=== PATIENT | male | born 1960 | race Hispanic/Latino ===

== ENCOUNTER 2020-03-23 16:36 | Inpatient (IN) | payer MEDICARE ==
[~2020-03-23] VITALS: Ht 167.6 cm; Wt 78.5 kg
[2020-03-23] MEDS: PIPER-TAZ 3.375 GM 50 ML IV SCH (12:00)
[2020-03-23] MEDS ORDERED: ONDANSETRON HCL INJ 2MG/ML 2ML 2 MG/ML VIAL IV STA (17:01)
[2020-03-23] MEDS ORDERED: SODIUM CHLORIDE 0.9% 1000ML 1,000 ML IV STA ×3 (17:01→20:22)
[2020-03-23] MEDS ORDERED: PIPER-TAZ 3.375 GM 50 ML IV STA (17:01)
[2020-03-23] MEDS ORDERED: MORPHINE SULFATE INJ 4 MG/ML INJ 1ML IV STA (17:01)
[2020-03-23] MEDS ORDERED: SODIUM CHLORIDE FLUSH 10 ML SYR INJ PRN (17:15)
[2020-03-23 17:31] LABS: BASOPHILS # (AUTO) 0.1 (0.0-0.1); BASOPHILS % 0.4 % (0.0-1.0); EOSINOPHILS % 0.2 % (0.0-6.0); HEMATOCRIT 46.1 % (38.2-49.6); HEMOGLOBIN 15.4 g/dL (14.0-18.0); LYMPHOCYTES # (AUTO) 2.2 (1.0-3.2); LYMPHOCYTES % 12.1 % (18.0-39.1); MEAN CORPUSCULAR HEMOGLOBIN 29.4 pg (28-32); MEAN CORPUSCULAR HGB CONC 33.4 g/dL (31-35); MONOCYTES % 10.5 % (4.4-11.3); NEUTROPHILS # (AUTO) 14.1 (2.1-6.9); NEUTROPHILS % 76.2 % (38.7-80.0); PLATELET COUNT 195 x10e3/uL (140-360); RED BLOOD COUNT 5.24 x10e6/uL (4.3-5.7); RED CELL DISTRIBUTION WIDTH 13.8 % (11.7-14.4)
[2020-03-23 17:35] LABS: BILIRUBIN,URINE NEGATIVE (NEGATIVE); CLARITY,URINE SL CLOUDY (CLEAR); COLOR,URINE YELLOW (YELLOW); KETONES,URINE NEGATIVE (NEGATIVE); LEUKOCYTE ESTERASE ,URINE NEGATIVE (NEGATIVE); NITRITE,URINE NEGATIVE (NEGATIVE); PROTEIN,URINE DIPSTICK 2+ (NEGATIVE); URINE UROBILINOGEN 0.2 mg/dL (0.2 - 1)
[2020-03-23 17:46] LABS: BACTERIA,URINE MODERATE /HPF; RBC,URINE 0-5 /HPF (0-5)
[2020-03-23 17:47] LABS: EPITHELIAL CELLS,URINE RARE /LPF
[2020-03-23 17:52] LABS: ALANINE AMINOTRANSFERASE 22 IU/L (0-55); ALBUMIN 4.5 g/dL (3.5-5.0); ALBUMIN/GLOBULIN RATIO 1.5 (0.8-2.0); ALKALINE PHOSPHATASE 70 IU/L (40-150); ANION GAP 16.7 mmol/L (8-16); BLOOD UREA NITROGEN 11 mg/dL (7-26); BUN/CREATININE RATIO 11 (6-25); CALCIUM 9.6 mg/dL (8.4-10.2); CARBON DIOXIDE 24 mmol/L (22-29); CHLORIDE 98 mmol/L (98-107); CREATINE KINASE 33 IU/L (30-200); CREATININE, SERUM 0.97 mg/dL (0.72-1.25); EST GLOMERULAR FILTRATION RATE > 60 ML/MIN (60-); GLUCOSE 95 mg/dL (74-118); LIPASE 57 U/L (8-78); POTASSIUM 3.7 mmol/L (3.5-5.1); SODIUM 135 mmol/L (136-145)
[2020-03-23] MEDS ORDERED: SODIUM CHLORIDE 0.9% 50ML 50 ML ONE (18:15)
[2020-03-23] MEDS ORDERED: IOPAMIDOL 370 MG/ML 200 ML INFUS..BTL INJ ONE (18:15)
--- NOTE | 2020-03-23 18:35 | Diagnostic Imaging Report ---
EXAMINATION: CHEST SINGLE (PORTABLE) INDICATION: Abdominal pain concerning for pneumoperitoneum. COMPARISON: None FINDINGS: TUBES and LINES: None. LUNGS: Normal lung volumes. Lungs are clear. No consolidations. PLEURA: No pleural effusion or pneumothorax. HEART AND MEDIASTINUM: The cardiomediastinal silhouette is unremarkable. BONES AND SOFT TISSUES: No acute osseous lesion. Soft tissues are unremarkable. UPPER ABDOMEN: No free air under the diaphragm. IMPRESSION: 1. No evidence of pneumoperitoneum. 2. No acute thoracic radiographic abnormality. Signed by: Carly Hale MD on 03/23/2020 6:32 PM
--- NOTE | 2020-03-23 19:41 | Diagnostic Imaging Report ---
EXAM: CT Abdomen and Pelvis WITH contrast INDICATION: Generalized abdominal pain. COMPARISON: None. TECHNIQUE: Abdomen and pelvis were scanned utilizing a multidetector helical scanner from the lung base to the pubic symphysis after administration of IV contrast. Coronal and sagittal reformations were obtained. Routine protocol was performed. Scan was performed when during portal venous phase. IV CONTRAST: 100 mL of Isovue 370 ORAL CONTRAST: None COMPLICATIONS: None RADIATION DOSE: Total DLP: ... mGy*cm Estimated effective dose: (DLP x 0.015 x size factor) mSv CTDIvol has been reviewed. It is below the limits set by the Radiation Protocol Committee (RPC). Dose modulation, iterative reconstruction, and/or weight based adjustment of the mA/kV was utilized to reduce the radiation dose to as low as reasonably achievable. FINDINGS: LINES and TUBES: None. LOWER THORAX: There is bibasilar atelectasis. Atherosclerotic calcification of the coronary vessels. HEPATOBILIARY: The liver is diffuse hypodense compared to the spleen, consistent with diffuse hepatic diffuse hepatic steatosis. No focal hepatic lesions. No biliary ductal dilation. GALLBLADDER: No radio-opaque stones or sludge. No wall thickening. SPLEEN: No splenomegaly. PANCREAS: No focal masses or ductal dilatation. ADRENALS: No adrenal nodules KIDNEYS/URETERS: Kidneys enhance symmetrically. No hydronephrosis. There are scattered too small to characterize hypodensites, likely benign. Exophytic cyst in the midpole of the right kidney. No stones. GI TRACT: There is an outpouching from the proximal small bowel which contain stool and measures approximately 3 x 3 cm which most likely represent small bowel diverticula. There is mucosal wall thickening and severe peripheral fat stranding of the adjacent small bowel. Small hiatal hernia. No abnormal distention or evidence of bowel obstruction. There are also diverticula within the colon without evidence of diverticulitis. Appendix is normal. PELVIC ORGANS/BLADDER: Unremarkable. LYMPH NODES: There are multiple prominent lymph nodes adjacent to the inflamed small bowel, none of which is size criteria for pathologic enlargement. VESSELS: There is engorgement and edema of the mesenteric vasculature adjacent to the inflamed small bowel. The abdominal aorta and its major abdomen and pelvic branches have mild atherosclerotic calcification with normal caliber. PERITONEUM / RETROPERITONEUM: No free air or fluid. BONES: There are degenerative changes in the spine. Status post L4-S1 posterior spinal fusion with intact hardware. SOFT TISSUES: There are fat containing inguinal hernias. IMPRESSION: Outpouching from the proximal small bowel which contain stool and measures approximately 3 x 3 cm, most likely represent small bowel diverticula. There is mucosal wall thickening and severe peripheral fat stranding of the adjacent small bowel. This constellation of findings are most compatible with perforated or almost perforated small bowel diverticulitis. No free air. There is engorgement and edema of the adjacent mesenteric vasculature and prominent reactive lymph nodes. Signed by: Carly Hale MD on 03/23/2020 7:38 PM
[2020-03-23] MEDS ORDERED: ACETAMINOPHEN 325 MG TAB PO ONE (19:45)
[2020-03-23] MEDS ORDERED: METRONIDAZOLE 500MG/NS 100ML 100 ML IV STA (20:22)
--- NOTE | 2020-03-23 20:35 | Emergency Department Note ---
History of Present Illnes History of Present Illness Chief Complaint: generalize abdominal pain History of Present Illness This is a 59 year old male. was doing well prior to this. then abdominal pain and fever. Historian: Patient Arrival Mode: Car History limited by: condition of the patient (normal) Copper Plater Required: No Onset (how long ago): day(s) (2) Location: see above Quality: sharp Radiation: Reports non-radiation Severity: severe Onset quality: gradual Duration (how long): day(s) (2) Timing of current episode: constant Progression: worsening Chronicity: new Context: Denies recent illness, Denies recent surgery, Denies recent immobilization, Denies recent travel, Denies trauma/injury, Denies new medications, Denies hx of DVT/PE, Denies non-compliance w/ medications Relieving factors: none Exacerbating factors: movement Associated symptoms: Reports malaise Treatments prior to arrival: none Past Medical/Family History Physician Review I have reviewed the patient's past medical and family history. Any updates have been documented here. Past Medical History Recent Fever: No Clinical Suspicion of Infectio: No New/Unexplained Change in Ment: No Past Medical History: Hypertension, Diabetes, Hyperlipedemia, Chronic Back Pain Past Surgical History: Hernia Repair, Back Surgery Other Surgery: carpal tunnel release Social History Smoking Cessation: Current every day smoker Counseling Performed: No Alcohol Use: Occasional Any Illegal Drug Use: No Physically hurt or threatened: No Other Any Pre-Existing Lines (PICC,: No Review of Systems Review of Systems Constitutional: Reports as per HPI EENTM: Reports no symptoms Cardiovascular: Reports no symptoms Respiratory: Reports no symptoms Gastrointestinal: Reports as per HPI Genitourinary: Reports no symptoms Musculoskeletal: Reports no symptoms Integumentary: Reports no symptoms Neurological: Reports no symptoms Psychological: Reports no symptoms Endocrine: Reports no symptoms Hematological/Lymphatic: Reports no symptoms Review of other systems: All other systems negative Physical Exam Related Data Allergies: Coded Allergies: No Known Allergies (Unverified , 03/23/20) Triage Vital Signs Vital Signs Date Time Temp Pulse Resp B/P (MAP) Pulse Ox O2 Delivery O2 Flow Rate FiO2 03/23/20 16:49 98.8 110 18 129/88 100 Room Air Vital signs reviewed: Yes Physical Exam CONSTITUTIONAL Constitutional: Present well-developed, Present well-nourished HENT HENT: Present normocephalic, Present atraumatic, Present oropharynx clear/moist, Present nose normal HENT L/R: Present left ext ear normal, Present right ext ear normal EYES Eyes: Reports PERRL, Reports conjunctivae normal NECK Neck: Present ROM normal, Present supple PULMONARY Pulmonary: Present effort normal, Present breath sounds normal CARDIOVASCULAR Cardiovascular: Present regular rhythm, Present heart sounds normal, Present capillary refill normal, Present tachycardia GASTROINTESTINAL Abdominal: Present soft, Present bowel sounds normal, Present tender (generalize), Present guarding, Present rebound GENITOURINARY Genitourinary: Present exam deferred SKIN Skin: Present warm, Present dry MUSCULOSKELETAL Musculoskeletal: Present ROM normal NEUROLOGICAL Neurological: Present alert, Present oriented x 3, Present no gross motor or sensory deficits PSYCHOLOGICAL Psychological: Present mood/affect normal, Present judgement normal Results Laboratory Result Diagram: 03/23/20 1709 03/23/20 170 Laboratory Laboratory Tests Test 03/23/20 17:09 White Blood Count 18.53 x10e3/uL (4.8-10.8) Red Blood Count 5.24 x10e6/uL (4.3-5.7) Hemoglobin 15.4 g/dL (14.0-18.0) Hematocrit 46.1 % (38.2-49.6) Mean Corpuscular Volume 88.0 fL (81-99) Mean Corpuscular Hemoglobin 29.4 pg (28-32) Mean Corpuscular Hemoglobin Concent 33.4 g/dL (31-35) Red Cell Distribution Width 13.8 % (11.7-14.4) Platelet Count 195 x10e3/uL (140-360) Neutrophils (%) (Auto) 76.2 % (38.7-80.0) Lymphocytes (%) (Auto) 12.1 % (18.0-39.1) Monocytes (%) (Auto) 10.5 % (4.4-11.3) Eosinophils (%) (Auto) 0.2 % (0.0-6.0) Basophils (%) (Auto) 0.4 % (0.0-1.0) Neutrophils # (Auto) 14.1 (2.1-6.9) Lymphocytes # (Auto) 2.2 (1.0-3.2) Monocytes # (Auto) 2.0 (0.2-0.8) Eosinophils # (Auto) 0.0 (0.0-0.4) Basophils # (Auto) 0.1 (0.0-0.1) Absolute Immature Granulocyte (auto 0.11 x10e3/uL (0-0.1) Urine Color Yellow (YELLOW) Urine Clarity Sl cloudy (CLEAR) Urine pH 6 (5 - 7) Urine Specific [place] 1.025 (1.010-1.025) Urine Protein 2+ (NEGATIVE) Urine Glucose (UA) 1+ (NEGATIVE) Urine Ketones Negative (NEGATIVE) Urine Blood Small (NEGATIVE) Urine Nitrite Negative (NEGATIVE) Urine Bilirubin Negative (NEGATIVE) Urine Urobilinogen 0.2 mg/dL (0.2 - 1) Urine Leukocyte Esterase Negative (NEGATIVE) Urine RBC 0-5 /HPF (0-5) Urine WBC None /HPF (0-5) Urine Epithelial Cells Rare /LPF (NONE) Urine Bacteria Moderate /HPF (NONE) Sodium Level 135 mmol/L (136-145) Potassium Level 3.7 mmol/L (3.5-5.1) Chloride Level 98 mmol/L (98-107) Carbon Dioxide Level 24 mmol/L (22-29) Anion Gap 16.7 mmol/L (8-16) Blood Urea Nitrogen 11 mg/dL (7-26) Creatinine 0.97 mg/dL (0.72-1.25) Estimat Glomerular Filtration Rate > 60 ML/MIN (60-) BUN/Creatinine Ratio 11 (6-25) Glucose Level 95 mg/dL (74-118) Calcium Level 9.6 mg/dL (8.4-10.2) Total Bilirubin 0.7 mg/dL (0.2-1.2) Aspartate Amino Transf (AST/SGOT) 14 IU/L (5-34) Alanine Aminotransferase (ALT/SGPT) 22 IU/L (0-55) Alkaline Phosphatase 70 IU/L (40-150) Creatine Kinase 33 IU/L (30-200) Creatine Kinase MB 0.40 ng/mL (0-5.0) Troponin I 0.007 ng/mL (0-0.300) Total Protein 7.6 g/dL (6.5-8.1) Albumin 4.5 g/dL (3.5-5.0) Globulin 3.1 g/dL (2.3-3.5) Albumin/Globulin Ratio 1.5 (0.8-2.0) Lipase 57 U/L (8-78) Imaging Imaging results reviewed: Yes Impressions [place] [id number] [place] [id number] Patient Name: TAO STILL MR #: [id number] : 1960 Age/Sex: 59/M Req #: [id number] Adm Physician: Ordered by: ARIES SUE Report #: [id number] Location: ER Room/Bed: Procedure: [id number] CT/CT ABDOMEN/PELVIS W Exam Date: 03/23/20 Exam Time: 1839 REPORT STATUS: Signed EXAM: CT Abdomen and Pelvis WITH contrast INDICATION: Generalized abdominal pain. COMPARISON: None. TECHNIQUE: Abdomen and pelvis were scanned utilizing a multidetector helical scanner from the lung base to the pubic symphysis after administration of IV contrast. Coronal and sagittal reformations were obtained. Routine protocol was performed. Scan was performed when during portal venous phase. IV CONTRAST: 100 mL of Isovue 370 ORAL CONTRAST: None COMPLICATIONS: None RADIATION DOSE: Total DLP: ... mGy*cm Estimated effective dose: (DLP x 0.015 x size factor) mSv CTDIvol has been reviewed. It is below the limits set by the Radiation Protocol Committee (RPC). Dose modulation, iterative reconstruction, and/or weight based adjustment of the mA/kV was utilized to reduce the radiation dose to as low as reasonably achievable. FINDINGS: LINES and TUBES: None. LOWER THORAX: There is bibasilar atelectasis. Atherosclerotic calcification of the coronary vessels. HEPATOBILIARY: The liver is diffuse hypodense compared to the spleen, consistent with diffuse hepatic diffuse hepatic steatosis. No focal hepatic lesions. No biliary ductal dilation. GALLBLADDER: No radio-opaque stones or sludge. No wall thickening. SPLEEN: No splenomegaly. PANCREAS: No focal masses or ductal dilatation. ADRENALS: No adrenal nodules KIDNEYS/URETERS: Kidneys enhance symmetrically. No hydronephrosis. There are scattered too small to characterize hypodensites, likely benign. Exophytic cyst in the midpole of the right kidney. No stones. GI TRACT: There is an outpouching from the proximal small bowel which contain stool and measures approximately 3 x 3 cm which most likely represent small bowel diverticula. There is mucosal wall thickening and severe peripheral fat stranding of the adjacent small bowel. Small hiatal hernia. No abnormal distention or evidence of bowel obstruction. There are also diverticula within the colon without evidence of diverticulitis. Appendix is normal. PELVIC ORGANS/BLADDER: Unremarkable. LYMPH NODES: There are multiple prominent lymph nodes adjacent to the inflamed small bowel, none of which is size criteria for pathologic enlargement. VESSELS: There is engorgement and edema of the mesenteric vasculature adjacent to the inflamed small bowel. The abdominal aorta and its major abdomen and pelvic branches have mild atherosclerotic calcification with normal caliber. PERITONEUM / RETROPERITONEUM: No free air or fluid. BONES: There are degenerative changes in the spine. Status post L4-S1 posterior spinal fusion with intact hardware. SOFT TISSUES: There are fat containing inguinal hernias. IMPRESSION: Outpouching from the proximal small bowel which contain stool and measures approximately 3 x 3 cm, most likely represent small bowel diverticula. There is mucosal wall thickening and severe peripheral fat stranding of the adjacent small bowel. This constellation of findings are most compatible with perforated or almost perforated small bowel diverticulitis. No free air. There is engorgement and edema of the adjacent mesenteric vasculature and prominent reactive lymph nodes. Signed by: Anju Moss MD on 03/23/2020 7:38 PM Dictated By: ANJU MOSS MD 37 Transcribed By: YUNIOR on 03/23/201937 COPY TO: ARIES SUE~ Critical Care Time Subsequent provider SPOKE TO DR Yen DUGGAN- GEN SURGEON - AT 2015HRS AND WILL COME SEE PT NOW Assessment & Plan Medical Decision Making MDM peritonitis, Assessment & Plan Final Impression: (1) Acute abdomen (2) Diverticulitis (3) Peritonitis Depart Disposition: ADMITTED Last Vital Signs Date Time Temp Pulse Resp B/P (MAP) Pulse Ox O2 Delivery O2 Flow Rate FiO2 03/23/20 16:49 98.8 110 18 129/88 100 Room Air Home Meds Reported Medications Duloxetine Hcl (CYMBALTA) 30 Mg Capsule.dr, 60 MG PO QID, #30 CAP 03/24/20 Atorvastatin Calcium (ATORVASTATIN CALCIUM) 20 Mg Tablet, 20 MG PO HS, #30 TAB 03/24/20 Glimepiride (GLIMEPIRIDE) 2 Mg Tablet, 4 MG PO QID, TAB 03/24/20 Lisinopril/Hydrochlorothiazide (LISINOPRIL-HCTZ 20-12.5 MG TAB) 1 Each Tablet, 1 TAB PO DAILY 03/24/20 Metoprolol Succinate (METOPROLOL SUCCINATE) 50 Mg Tab.er.24h, 100 MG PO DAILY, MG 03/24/20 Metformin Hcl (METFORMIN HCL) 500 Mg Tablet, 1000 MG PO BID, #60 TAB 03/24/20 Tramadol Hcl* (ULTRAM 50MG*) 50 Mg Tab, 50 MG PO BID, TAB 03/24/20 Discontinued Reported Medications Lidocaine/Menthol (LIDOPATCH) 1 Each Adh..patch, 1 PATCH TOP HS, PATCH 03/26/20 Medications in the ED Ondansetron HCl 4 mg NOW STAT IV Last administered on 03/23/20at 18:31; Admin Dose 4 MG; Start 03/23/20 at 17:01; Stop 03/23/20 at 17:08; Status DC Piperacillin Sod/ Tazobactam Sod 50 ml @ 50 mls/hr ONCE STAT IV Last administered on 03/23/20at 18:31; Admin Dose 50 MLS/HR; Start 03/23/20 at 17:01; Stop 03/23/20 at 18:00; Status DC Sodium Chloride 1,000 ml @ 0 mls/hr Q0M STAT IV Last administered on 03/23/20at 18:31; Admin Dose 999 MLS/HR; Start 03/23/20 at 17:01; Stop 03/23/20 at 17:06; Status DC Morphine Sulfate 4 mg ONCE STAT IV Last administered on 03/23/20at 18:31; Admin Dose 4 MG; Start 03/23/20 at 17:01; Stop 03/23/20 at 17:08; Status DC Sodium Chloride 10 ml PRN PRN INJ IV SITE FLUSH; Start 03/23/20 at 17:15; Stop 04/22/20 at 17:14 Sodium Chloride 1,000 ml @ 1,000 mls/hr Q1H STAT IV Last administered on 03/23/20at 18:32; Admin Dose 1,000 MLS/HR; Start 03/23/20 at 17:06; Stop 03/23/20 at 18:05; Status DC Sodium Chloride 50 ml @ ud STK-MED ONCE .ROUTE ; Start 03/23/20 at 18:15; Stop 03/23/20 at 18:09; Status DC Iopamidol 74,000 mg STK-MED ONCE INJ ; Start 03/23/20 at 18:15; Stop 03/23/20 at 18:09; Status DC Acetaminophen 650 mg ONCE ONCE PO Last administered on 03/23/20at 20:16; Admin Dose 650 MG; Start 03/23/20 at 19:45; Stop 03/23/20 at 19:49; Status DC Metronidazole/ Sodium Chloride 100 ml @ 100 mls/hr NOW STAT IV ; Start 03/23/20 at 20:22; Stop 03/23/20 at 21:21 Sodium Chloride 1,000 ml @ 1,000 mls/hr Q1H STAT IV ; Start 03/23/20 at 20:22; Stop 03/23/20 at 21:21 ARIES SUE Mar 23, 2020 20:35
[2020-03-23] MEDS ORDERED: MORPHINE SULFATE 2 MG/ML SYR 1ML IV PRN (20:40)
[2020-03-23] MEDS ORDERED: ONDANSETRON HCL INJ 2MG/ML 2ML 2 MG/ML VIAL IV PRN (20:45)
[2020-03-23] MEDS: SODIUM CHLORIDE 0.9% 1000ML 1,000 ML IV SCH (21:02)
--- NOTE | 2020-03-23 21:17 | NUR ---
DR. Eddie ELENA
[2020-03-23] MEDS ORDERED: HYDROMORPHONE 1MG/1ML INJ IV PRN (22:00)
[2020-03-24] VITALS (9 sets, daily range): BP systolic 115–138; BP diastolic 76–95
[2020-03-24] MEDS: SODIUM CHLORIDE 0.9% 1000ML 1,000 ML IV SCH ×4 (00:45→19:41)
[2020-03-24] MEDS: PIPER-TAZ 3.375 GM 50 ML IV SCH ×5 (00:45→17:31)
--- NOTE | 2020-03-24 00:50 | NUR ---
RECEIVED PATIENT FROM ER IN STABLE CONDITION, NO SIGNS OF DISTRESS NOTED. IV FLUIDS ARE RUNNING AT ORDERED RATE, PATIENT VOICES PAIN AT A LEVEL OF 9, WAS MEDICATED ORDERED. PATIENT VOICED UNDERSTANDING OF NPO AFTER MIDNIGHT FOR PROCEDURE IN THE MORNING, INSTRUCTED TO USE CALL LIGHT FOR ASSISTANCE. BED IS IN LOWEST POSITION, BOTH SIDE RAILS ARE UP, CALL LIGHT IS WITHIN EASY REACH, WILL CONTINUE TO MONITOR.
[2020-03-24] MEDS: METRONIDAZOLE 500MG/NS 100ML 100 ML IV SCH ×4 (03:00→19:41)
[2020-03-24] MEDS ORDERED: ULTRAM 50MG50 MG PO (04:19)
[2020-03-24] MEDS ORDERED: LISINOPRIL-HCT1 EACH PO (04:19)
[2020-03-24] MEDS ORDERED: ATORVASTATIN CA20 MG PO (04:19)
[2020-03-24] MEDS ORDERED: GLIMEPIRIDE2 MG PO (04:19)
[2020-03-24] MEDS ORDERED: CYMBALTA30 MG PO (04:19)
[2020-03-24] MEDS ORDERED: METFORMIN HCL500 MG PO (04:19)
[2020-03-24] MEDS ORDERED: METOPROLOL SUCC50 MG PO (04:19)
[2020-03-24 05:51] LABS: BASOPHILS # (AUTO) 0.1 (0.0-0.1); BASOPHILS % 0.3 % (0.0-1.0); HEMATOCRIT 37.6 % (38.2-49.6); HEMOGLOBIN 12.7 g/dL (14.0-18.0); LYMPHOCYTES # (AUTO) 1.3 (1.0-3.2); LYMPHOCYTES % 8.2 % (18.0-39.1); MEAN CORPUSCULAR HEMOGLOBIN 29.6 pg (28-32); MEAN CORPUSCULAR HGB CONC 33.8 g/dL (31-35); MEAN CORPUSCULAR VOLUME 87.6 fL (81-99); MONOCYTES # (AUTO) 1.6 (0.2-0.8); MONOCYTES % 9.6 % (4.4-11.3); NEUTROPHILS # (AUTO) 13.1 (2.1-6.9); PLATELET COUNT 137 x10e3/uL (140-360); RED BLOOD COUNT 4.29 x10e6/uL (4.3-5.7); RED CELL DISTRIBUTION WIDTH 13.8 % (11.7-14.4)
[2020-03-24 06:08] LABS: ANION GAP 11.6 mmol/L (8-16); BLOOD UREA NITROGEN 9 mg/dL (7-26); BUN/CREATININE RATIO 11 (6-25); CALCIUM 7.8 mg/dL (8.4-10.2); CARBON DIOXIDE 22 mmol/L (22-29); CHLORIDE 105 mmol/L (98-107); CREATININE, SERUM 0.84 mg/dL (0.72-1.25); EST GLOMERULAR FILTRATION RATE > 60 ML/MIN (60-); GLUCOSE 60 mg/dL (74-118); POTASSIUM 3.6 mmol/L (3.5-5.1); SODIUM 135 mmol/L (136-145)
[2020-03-24] MEDS ORDERED: DEXTROSE 5% 250ML 250 ML IV ONE (06:28)
[2020-03-24] MEDS ORDERED: NALOXONE HCL INJ 0.4 MG/ML AMP IV PRN (08:15)
[2020-03-24] MEDS ORDERED: FENTANYL CITRATE/PF 100MCG/2 ML INJ ONE ×2 (08:30→13:47)
[2020-03-24] MEDS ORDERED: HYDROMORPHONE 1MG/1ML INJ ONE (08:46)
[2020-03-24] MEDS ORDERED: HYDROMORPHONE 0.2MG/ML-SOD CHL 30ML PCA SYRINGE IV ONE (08:53)
--- NOTE | 2020-03-24 09:14 | Operative Report ---
DATE OF PROCEDURE: 03/24/2020 SURGEON: Josesito Oquendo MD PREOPERATIVE DIAGNOSIS: Perforated jejunal diverticulitis with mesenteric abscess. POSTOPERATIVE DIAGNOSIS: Perforated jejunal diverticulitis with mesenteric abscess. OPERATION PERFORMED: Exploratory laparotomy and small bowel resection. ANESTHESIA: General. COMPLICATIONS: None. ESTIMATED BLOOD LOSS: 50 mL. DESCRIPTION OF PROCEDURE: With the patient lying in bed in the supine position under good general endotracheal anesthesia, the abdomen was prepped with Betadine solution and draped in the usual manner. A midline incision was made. It was carried down through the subcutaneous tissue and through the midline fascia. The peritoneum was opened and the abdomen was entered. Upon entering the abdominal cavity, exploration immediately revealed a palpable mass in the left upper quadrant, which was consisted of the small bowel that was covered up with adhesions. The omentum was then from the small bowel and the mass was from the descending colon, and it was then brought up into the wound. Examination at this point revealed as expected. There was a loop of jejunum that had a mesenteric abscess secondary to perforated jejunal diverticulum. There was some inflammatory reaction all the way around it. There was some fluid in the abdominal cavity with no gross purulence in the abdominal cavity other than that related to the fibrinous exudate in the omentum. We decided to go ahead and proceed with resection of the area roughly about 10 inches of small bowel were removed. We found normal small bowel proximally and distally, and at this point it was divided with the OPAL stapler. The mesentery was then divided using the EnSeal device and the specimen was sent for pathological examination. The anastomosis was completed with another application of the OPAL-75 stapler and the remaining opening was closed with a TA-60 stapler. Gloves and instruments were changed. The anastomosis was reinforced with 3-0 silk. The mesenteric rent was closed with a running suture of 2-0 Vicryl and the bowel was then run. There was no other diverticulitis that could be identified. The abdomen was then copiously irrigated with saline solution. All the fluid was aspirated. There were a couple of small pieces of omentum that looked to be rather inflamed and these were resected, and after this was done, the abdomen was then closed in layers. The peritoneum was closed with a running suture of #1 Vicryl. The midline fascia was closed with a running suture of #1 Vicryl and the skin was closed with clips. A dressing was applied. The sponge, lap, and needle count was correct. The patient tolerated the procedure well and returned to the recovery room in stable condition. MD RIGOBERTO Hull/RAYA /[id number]
--- NOTE | 2020-03-24 10:15 | NUR ---
PATIENT RETURNED FROM PACU TO ROOM 108. BINDER TO ABDOMEN, NG, PETTIT, AND HOGSHEAD BUILDER PUMP IN PLACE. PLACED ON 2L DUE TO PATIENT SLEEPING. CALL LIGHT AND BUTTON WITHIN REACH.
[2020-03-24] MEDS: PANTOPRAZOLE 40 MG 10ML VIAL IV SCH (11:37)
[2020-03-24] MEDS: SODIUM CHLORIDE 0.9% 250ML IRRIG IR SCH ×5 (11:37→23:28)
[2020-03-24] MEDS: INSULIN REGULAR, HUMAN 100 UNIT/1 ML 3ML VIAL SQ SCH ×3 (12:00→23:27)
[2020-03-24] MEDS ORDERED: LIDOCAINE HCL 2% LOCAL INJ 5 ML SDV VIAL INJ ONE (12:47)
[2020-03-24] MEDS ORDERED: SEVOFLURANE INHAL SOLN 250 ML PEN BTL ONE (12:47)
[2020-03-24] MEDS ORDERED: NEOSTIGMINE 1 MG/ML 10ML VIAL ONE (12:47)
[2020-03-24] MEDS ORDERED: PROPOFOL IV EMULSION 10 MG/ML 20 ML VIAL ONE (12:47)
[2020-03-24] MEDS ORDERED: SUCCINYLCHOLINE CHLORIDE 20 MG/ML 10ML VIAL ONE (12:47)
[2020-03-24] MEDS ORDERED: DEXAMETHASONE SOD PHOS INJ 4 MG/ML VIAL ONE (12:47)
[2020-03-24] MEDS ORDERED: ROCURONIUM BROMIDE 10 MG/ML 5ML VIAL IV ONE (12:47)
[2020-03-24] MEDS ORDERED: ONDANSETRON HCL INJ 2MG/ML 2ML 2 MG/ML VIAL ONE (12:47)
[2020-03-24] MEDS ORDERED: GLYCOPYRROLATE INJ 0.2 MG/ML VIAL ONE (12:47)
[2020-03-24] MEDS ORDERED: KETAMINE HCL INJ 50 MG/ML 10 ML VIAL ONE (13:47)
[2020-03-24] MEDS ORDERED: MIDAZOLAM HCL 2 MG/2 ML VIAL ONE (13:47)
--- NOTE | 2020-03-24 19:00 | NUR ---
Resumed care of patient. Patient awake and sitting up in bed, respirations even and unlabored on room air, no s/s of distress at this time. NGT attached to suction. Joyce catheter patent and draining clear urine to gravity. Bed locked and in lowest position, side rails upx3, call light placed within reach. Patient instructed to call for assistance if needed, verbalized understanding. All safety measures in place.
[2020-03-25] VITALS (8 sets, daily range): BP systolic 125–156; BP diastolic 78–90
[2020-03-25] MEDS: PIPER-TAZ 3.375 GM 50 ML IV SCH ×4 (00:29→16:35)
[2020-03-25] MEDS: METRONIDAZOLE 500MG/NS 100ML 100 ML IV SCH ×4 (01:34→20:00)
[2020-03-25] MEDS: HYDROMORPHONE 0.2MG/ML-SOD CHL 30ML PCA SYRINGE IV PRN ×2 (03:46→14:03)
[2020-03-25] MEDS: SODIUM CHLORIDE 0.9% 250ML IRRIG IR SCH ×5 (04:03→20:00)
[2020-03-25] MEDS: SODIUM CHLORIDE 0.9% 1000ML 1,000 ML IV SCH ×3 (05:10→23:06)
[2020-03-25] MEDS: INSULIN REGULAR, HUMAN 100 UNIT/1 ML 3ML VIAL SQ SCH ×3 (05:10→16:49)
--- NOTE | 2020-03-25 07:03 | NUR ---
Bedside report given to oncoming nurse. Patient awake and resting in bed, no s/s of distress at this time. All safety measures in place.
[2020-03-25] MEDS: PANTOPRAZOLE 40 MG 10ML VIAL IV SCH (08:33)
[2020-03-25 09:31] LABS: BASOPHILS % 0.2 % (0.0-1.0); HEMATOCRIT 35.7 % (38.2-49.6); HEMOGLOBIN 11.9 g/dL (14.0-18.0); LYMPHOCYTES % 9.5 % (18.0-39.1); MEAN CORPUSCULAR HEMOGLOBIN 29.5 pg (28-32); MEAN CORPUSCULAR HGB CONC 33.3 g/dL (31-35); MEAN CORPUSCULAR VOLUME 88.4 fL (81-99); MONOCYTES # (AUTO) 0.8 (0.2-0.8); NEUTROPHILS % 82.7 % (38.7-80.0); PLATELET COUNT 161 x10e3/uL (140-360); RED BLOOD COUNT 4.04 x10e6/uL (4.3-5.7); RED CELL DISTRIBUTION WIDTH 13.8 % (11.7-14.4)
[2020-03-25 09:41] LABS: ANION GAP 11.7 mmol/L (8-16); BLOOD UREA NITROGEN 13 mg/dL (7-26); BUN/CREATININE RATIO 17 (6-25); CARBON DIOXIDE 23 mmol/L (22-29); CHLORIDE 108 mmol/L (98-107); CREATININE, SERUM 0.77 mg/dL (0.72-1.25); EST GLOMERULAR FILTRATION RATE > 60 ML/MIN (60-); GLUCOSE 99 mg/dL (74-118); POTASSIUM 3.7 mmol/L (3.5-5.1); SODIUM 139 mmol/L (136-145)
[2020-03-25] MEDS: BISACODYL 10 MG SUPP PR SCH (16:32)
--- NOTE | 2020-03-25 20:52 | NUR ---
SPOKE TO DR. APRIL KRISHNAN AT THIS TIME. SAID PATIENT IS OK TO HAVE ICE CHIPS
[2020-03-26] VITALS (10 sets, daily range): BP systolic 134–160; BP diastolic 73–94
[2020-03-26] MEDS: SODIUM CHLORIDE 0.9% 250ML IRRIG IR SCH ×6 (00:15→20:15)
[2020-03-26] MEDS ORDERED: LIDOPATCH1 EACH TOP (00:17)
[2020-03-26] MEDS: METRONIDAZOLE 500MG/NS 100ML 100 ML IV SCH ×4 (02:00→20:00)
[2020-03-26] MEDS: HYDROMORPHONE 0.2MG/ML-SOD CHL 30ML PCA SYRINGE IV PRN (05:20)
[2020-03-26] MEDS: INSULIN REGULAR, HUMAN 100 UNIT/1 ML 3ML VIAL SQ SCH ×4 (05:41→17:31)
[2020-03-26 05:56] LABS: BASOPHILS % 0.3 % (0.0-1.0); EOSINOPHILS % 0.2 % (0.0-6.0); HEMATOCRIT 34.4 % (38.2-49.6); HEMOGLOBIN 11.6 g/dL (14.0-18.0); LYMPHOCYTES # (AUTO) 1.4 (1.0-3.2); LYMPHOCYTES % 15.7 % (18.0-39.1); MEAN CORPUSCULAR HGB CONC 33.7 g/dL (31-35); MONOCYTES # (AUTO) 0.7 (0.2-0.8); MONOCYTES % 7.5 % (4.4-11.3); NEUTROPHILS # (AUTO) 6.6 (2.1-6.9); PLATELET COUNT 154 x10e3/uL (140-360); RED BLOOD COUNT 3.74 x10e6/uL (4.3-5.7); RED CELL DISTRIBUTION WIDTH 13.9 % (11.7-14.4)
[2020-03-26] MEDS: PIPER-TAZ 3.375 GM 50 ML IV SCH ×5 (06:00→23:55)
[2020-03-26 06:18] LABS: ANION GAP 10.9 mmol/L (8-16); BLOOD UREA NITROGEN 12 mg/dL (7-26); BUN/CREATININE RATIO 16 (6-25); CALCIUM 8.3 mg/dL (8.4-10.2); CARBON DIOXIDE 22 mmol/L (22-29); CHLORIDE 109 mmol/L (98-107); CREATININE, SERUM 0.73 mg/dL (0.72-1.25); EST GLOMERULAR FILTRATION RATE > 60 ML/MIN (60-); GLUCOSE 72 mg/dL (74-118); POTASSIUM 3.9 mmol/L (3.5-5.1); SODIUM 138 mmol/L (136-145)
--- NOTE | 2020-03-26 06:20 | NUR ---
PETTIT CATHETER DC'D PER ORDER
[2020-03-26] MEDS: SODIUM CHLORIDE 0.9% 1000ML 1,000 ML IV SCH ×2 (09:20→18:21)
--- NOTE | 2020-03-26 09:20 | NUR ---
PATIENT VOIDED 200 CC CLEAR, YUMIKO URINE VIA URINAL.
[2020-03-26] MEDS: PANTOPRAZOLE 40 MG 10ML VIAL IV SCH (09:30)
[2020-03-26] MEDS: BISACODYL 10 MG SUPP PR SCH (09:30)
--- OUTSIDE RECORDS SUMMARY | 2020-03-26 15:58 | XMS REPORT | Continuity of Care Document ---
Author Author [facility] t Organization [facility] Address [address] [place] [address] Phone Unavailable Care Team Providers Care Noteman Name Role Phone Sandra SUE Attphys Unavailable Problems Condition Name Condition Details Condition Category Status Onset Date Resolution Date Last Treatment Date Treating Clinician Comments Source Decreased sensation Decreased sensation Disease Active 2015-06-15 00:00 :00 [facility] Edentulism, partial Edentulism, partial Disease Active 2015-02-06 00:00 :00 [facility] Diabetes mellitus type 2 without retinopathy Diabetes mellitus type 2 without retinopathy Disease Active 2014-09-16 00:00:00 [facility] Lumbar pain Lumbar pain Disease Active 2014-08-11 00:00:00 [facility] Congenital spondylolisthesis Congenital spondylolisthesis Disease Active 2014-05-30 00:00:00 [facility] Spinal stenosis, lumbar region, without neurogenic cla udication Spinal stenosis, lumbar region, without neurogenic claudication Disease Active 2014-05-30 00:00:00 [facility] Thoracic or lumbosacral neuritis or radiculitis, unspe cified Thoracic or lumbosacral neuritis or radiculitis, unspecified Disease Active 2014-05-30 00:00:00 [facility] Degeneration of lumbar or lumbosacral intervertebral d isc Degeneration of lumbar or lumbosacral intervertebral disc Disease Active 2014-05-30 00:00:00 [facility] Tubular adenoma of colon Tubular adenoma of colon Disease Acti ve 2014-05-19 00:00:00 Overview: Needs repeat colon oscopy in Sep 2015 [facility] History of complete foot exam by communications scientist or other p rovider History of complete foot exam by communications scientist or other provider Disease Active 2013-08-13 00:00:00 [facility] 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 Disea se Active 2013-04-09 00:00:00 [facility] Chronic knee pain Chronic knee pain Disease Active 2013-01-04 00:00:00 [facility] Hyperlipidemia LDL goal < 100 Hyperlipidemia LDL goal < 100 Disease Active 2013-01-04 00:00:00 [facility] HTN, goal below 130/80 HTN, goal below 130/80 Disease Active 2013-01-04 00:00:00 [facility] Foot pain, right Foot pain, right Disease Active 2012-07-27 00:00:00 [facility] Diabetes mellitus type II, uncontrolled Diabetes mellitus ty pe II, uncontrolled Disease Active 2012-07-07 00:00:00 [facility] Family history of colon cancer Family history of colon cancer Disea se Active 2012-04-30 00:00:00 [facility] Allergies, Adverse Reactions, Alerts This patient has no known allergies or adverse reactions. Family History Family Member Diagnosis Comments Start Date Stop Date Source Natural brother Diabetes [facility] alth Natural father Cancer [facility] Natural mother Diabetes [facility] Natural mother Hypertension [facility] Social History Social Habit Start Date Stop Date Quantity Comments Source Sex Assigned At [facility] Alcohol intake 2018-12-02 00:00:00 2018-12-02 00:00:00 Current non-drinker of alcohol (finding) [facility] SDOH Food Worry 2017-01-30 00:00:00 2017-01-30 00:00:00 1 [facility] Food Scarcity 2017-01-30 00:00:00 2017-01-30 00:00:00 1 [facility] Smoking Status Start Date Stop Date Source Never smoker [facility] Medications Ordered Medication Name Filled Medication Name Start Date Stop Da te Current Medication? Ordering Clinician Indication Dosage Frequency Signature (SIG) Comments Components Source metFORMIN (GLUCOPHAGE) 500 mg tablet 2017-10-29 00:00:00 Yes DM type 2, controlled, with complication TAKE 2 TAB LETS BY MOUTH 2 TIMES A DAY EVERY MORNING AND EVERY EVENING WITH MEALS [facility] traMADol (ULTRAM) 50 mg tablet 2017-10-22 00:00:00 Yes Chronic midline low back pain with right-sided sciatica 50mg Take 1 tablet by mouth every 8 hours as needed for Pain. [facility] atorvastatin (LIPITOR) 20 mg tablet 2017-08-15 00:00:00 Yes Dyslipidemia 20mg Take 1 tablet by mouth at bedtime nightly. [facility] metoprolol succinate (TOPROL XL) 100 mg extended release tab let 2017-08-15 00:00:00 Yes Essential hypert ension with goal blood pressure less than 130/80 100mg QD Take 1 tablet by mouth daily. [facility] lisinopril-hydrochlorothiazide (PRINZIDE, ZESTORETIC) 20-12. 5 mg per tablet 2017-08-15 00:00:00 Yes Essential hy pertension with goal blood pressure less than 130/80 2{tbl} QD Take 2 tablets by mouth daily. [facility] famotidine (PEPCID) 20 mg tablet 2017-08-15 00:00:00 Yes Gastroesophageal reflux disease without esophagitis 20mg Q.5D Take 1 tablet by mouth 2 times daily. [facility] glimepiride (AMARYL) 4 mg tablet 2017-08-15 00:00:00 Yes DM type 2, controlled, with complication 4mg QD Take 1 tab let by mouth every morning (before breakfast). [facility] pregabalin (LYRICA) 100 mg capsule 2017-07-10 00:00:00 Yes Chronic midline low back pain with right-sided sciatica 100mg Q.5D Take 1 capsule by mouth 2 times daily. [facility] blood glucose test strips 2016-10-21 00:00:00 Yes DM type 2, controlled, with complication Check blood glucose 2 times weekly. [facility] varenicline (CHANTIX) 1 mg tablet 2016-10-21 00:00:00 Yes Tobacco use disorder 1mg Q.5D Take 1 tablet by mouth 2 times daily. [facility] polyethylene glycol (GOLYTELY) 236-22.74-6.74 -5.86 gram ora l solution 2016-01-19 00:00:00 Yes Colon polyps Add lukewarm drinking water to the fill genevieve (4 liters) and shake. Drink as directed by your doctor.. [facility] blood glucose meter 2016-01-19 00:00:00 Yes DM type 2, controlled, with complication Use as directed.. [facility] blood glucose (PRECISION XTRA TEST STRIPS) test strips 2014-01-26 00:00:00 Yes Diabetes mellitus type II, uncontrolled Check blood sugar 3 times a week. [facility] blood glucose meter (PRECISION XTRA) 2012-04-16 00:00:00 Yes Routine adult health maintenance Use as directed. [facility] Immunizations Ordered Immunization Name Filled Immunization Name Date Status Comments Source Influenza Vaccine 2016-09-11 00:00:00 Completed [facility] Influenza Vaccine 2014-05-19 00:00:00 Completed [facility] Pneumoccoccal 2012-04-16 00:00:[facility] 2012-04-16 00:00:00 Completed [facility] Tdap Tetanus, diphtheria, acellular pertussis Vaccine 2012-04-16 00:00:00 Completed [facility] Procedures This patient has no known procedures. Plan of Care Planned Activity Planned Date Details Comments Source Future Scheduled Test 2018-08-15 00:00:00 DM Foot Exam (Year ly) [code = DM Foot Exam (Yearly)] [facility] Scheduled Test 2017-10-31 00:00:00 Hemoglobin A1c dudley surement (procedure) [code = 22914016] [facility] Scheduled Test 2017-10-31 00:00:00 DM Retinal Exam (Y early) [code = DM Retinal Exam (Yearly)] [facility] Scheduled Test 2015 00:00:00 Screening for mani gnant neoplasm of colon (procedure) [code = 573199355] [facility] Encounters Start Date/Time End Date/Time Encounter Type Admission Type [facility] Care Department Encounter ID Source 2017-11-19 00:00:00 2017-11-19 00:00:00 Outpatient [facility] [id number] [facility] 2017-11-12 00:00:00 2017-11-12 00:00:00 Outpatient [facility] [id number] [facility] 2017-10-22 00:00:00 2017-10-22 00:00:00 Outpatient [facility] [id number] [facility] 2017-10-06 00:00:00 2017-10-06 00:00:00 Outpatient [facility] [id number] [facility] 2017-10-03 00:00:00 2017-10-03 00:00:00 Outpatient [facility] [id number] [facility] 2017-09-18 00:00:00 2017-09-18 00:00:00 Outpatient [facility] [id number] [facility] 2017-08-15 08:49:49 2017-08-15 08:49:49 Outpatient [facility] [id number] [facility] 2017-07-10 00:00:00 2017-07-10 00:00:00 Outpatient [facility] [id number] [facility] 2017-06-12 10:47:28 2017-06-12 10:47:28 Outpatient [facility] [id number] [facility] 2017-06-09 00:00:00 2017-06-09 00:00:00 Outpatient [facility] [id number] [facility] 2017-05-09 00:00:00 2017-05-09 00:00:00 Outpatient [facility] [id number] [facility] 2017-03-31 00:00:00 2017-03-31 00:00:00 Outpatient [facility] [id number] [facility] 2017-03-21 00:00:00 2017-03-21 00:00:00 Outpatient [facility] [id number] [facility] 2017-02-06 00:00:00 2017-02-06 00:00:00 Outpatient [facility] [id number] [facility] 2017-01-30 09:49:12 2017-01-30 09:49:12 Outpatient [facility] [id number] [facility] 2017-01-30 00:00:00 2017-01-30 00:00:00 Outpatient [facility] [id number] [facility] Results Test Description Test Time Test Comments Results Result Comments Source CT ABDOMEN/PELVIS W 2020-03-23 19:13:00 [place] [address] Patient Name: TAO STLIL MR #: [id number] : 1960 Age/Sex: 59/M Req #: [id number] Adm Physician: Ordered by: ARIES SUE Report #: [id number] Location: ER Room/Bed: Procedure: [id number] CT/CT ABDOMEN/PELVIS W Exam Date: 03/23/20 Exam Time: 1839 REPORT STATUS: Signed EXAM: CT Abdomen and Pelvis WITH contrast INDICATION: Generalized abdominal pain. COMPARISON: None. TECHNIQUE: Abdomen and pelvis were scanned utilizing a multidetector helical scanner from the lung base to the pubic symphysis after administration of IV contrast. Coronal and sagittal reformations were obtained. Routine protocol was performed. Scan was performed when during portal venous phase. IV CONTRAST: 100 mL of Isovue 370 ORAL CONTRAST: None COMPLICATIONS: None RADIATION DOSE: Total DLP: ... mGy*cm Estimated effective dose: (DLP x 0.015 x size factor) mSv CTDIvol has been reviewed. It is below the limits set by the Radiation Protocol Committee (RPC). Dose modulation, iterative reconstruction, and/or weight based adjustment of the mA/kV was utilized to reduce the radiation dose to as low as reasonably achievable. FINDINGS: LINES and TUBES: None. LOWER THORAX: There is bibasilar atelectasis. Atherosclerotic calcification of the coronary vessels. HEPATOBILIARY: The liver is diffuse hypodense compared to the spleen, consistent with diffuse hepatic diffuse hepatic steatosis. No focal hepatic lesions. No biliary ductal dilation. GALLBLADDER: No radio-opaque stones or sludge. No wall thickening. SPLEEN: No splenomegaly. PANCREAS: No focal masses or ductal dilatation. ADRENALS: No adrenal nodules KIDNEYS/URETERS: Kidneys enhance symmetrically. No hydronephrosis. There are scattered too small to characterize hypodensites, likely benign. Exophytic cyst in the midpole of the right kidney. No stones. GI TRACT: There is an outpouching from the proximal small bowel which contain stool and measures approximately 3 x 3 cm which most likely represent small bowel diverticula. There is mucosal wall thickening and severe peripheral fat stranding of the adjacent small bowel. Small hiatal hernia. No abnormal distention or evidence of bowel obstruction. There are also diverticula within the colon without evidence of diverticulitis. Appendix is normal. PELVIC ORGANS/BLADDER: Unremarkable. LYMPH NODES: There are multiple prominent lymph nodes adjacent to the inflamed small bowel, none of which is size criteria for pathologic enlargement. VESSELS: There is engorgement and edema of the mesenteric vasculature adjacent to the inflamed small bowel. The abdominal aorta and its major abdomen and pelvic branches have mild atherosclerotic calcification with normal caliber. PERITONEUM / RETROPERITONEUM: No free air or fluid. BONES: There are degenerative changes in the spine. Status post L4-S1 posterior spinal fusion with intact hardware. SOFT TISSUES: There are fat containing inguinal hernias. IMPRESSION: Outpouching from the proximal small bowel which contain stool and measures approximately 3 x 3 cm, most likely represent small bowel diverticula. There is mucosal wall thickening and severe peripheral fat stranding of the adjacent small bowel. This constellation of findings are most compatible with perforated or almost perforated small bowel diverticulitis. No free air. There is engorgement and edema of the adjacent mesenteric vasculature and prominent reactive lymph nodes. Signed by: Anju Moss MD on 03/23/2020 7:38 PM Dictated By: ANJU MOSS MD 37 Transcribed By: YUNIOR on 03/23/201937 COPY TO: ARIES SUE CHEST SINGLE (PORTABLE) 2020-03-23 18:31:00 [place] [address] Patient Name: TAO STILL MR #: [id number] : 1960 Age/Sex: 59/M Req #: [id number] Adm Physician: Ordered by: ARIES SUE Report #: [id number] Location: ER Room/Bed: Procedure: [id number] DX/CHEST SINGLE (PORTABLE) Exam Date: 03/23/20 Exam Time: 1735 REPORT STATUS: Signed EXAMINATION: CHEST SINGLE (PORTABLE) INDICATION: Abdominal pain concerning for pneumoperitoneum. COMPARISON: None FINDINGS: TUBES and LINES: None. LUNGS: Normal lung volumes. Lungs are clear. No consolidations. PLEURA: No pleural effusion or pneumothorax. HEART AND MEDIASTINUM: The cardiomediastinal silhouette is unremarkable. BONES AND SOFT TISSUES: No acute osseous lesion. Soft tissues are unremarkable. UPPER ABDOMEN: No free air under the diaphragm. IMPRESSION: 1. No evidence of pneumoperitoneum. 2. No acute thoracic radiographic abnormality. Signed by: Anju Moss MD on 03/23/2020 6:32 PM Dictated By: ANJU MOSS MD 31 Transcribed By: YUNIOR on 03/23/201831 COPY TO: ARIES SUE
--- OUTSIDE RECORDS SUMMARY | 2020-03-26 15:58 | XMS REPORT | Clinical Summary ---
Author Author [facility] Dist[facility] ict Organization [facility] Address Unknown Phone Unavailable Care Team Providers Care Oil And Gas Drafter Name Role Phone PCP Unavailable Allergies No Known Allergies Medications End Date Status Medication Sig Dispensed Refills Start Date Active blood glucose meter Use as 1 Kit 0 (PRECISION directed. 2 XTRA)Indications: Routine adult health maintenance Active blood glucose (PRECISION Check blood 50 Each 11 0 XTRA TEST STRIPS) test sugar 3 times 4 stripsIndications: a week. Diabetes mellitus type II, uncontrolled Active polyethylene glycol Add lukewarm 4000 mL 0 01/18 (GOLYTELY) 236-22.74-6.74 drinking 6 -5.86 gram oral water to the solutionIndications: fill genevieve (4 Colon polyps liters) and shake. Drink as directed by your doctor.. Active blood glucose Use as 1 Kit 0 meterIndications: DM type directed.. 6 2, controlled, with complication Active blood glucose test Check blood 50 Each 3 10/21/2 01 stripsIndications: DM glucose 2 7 type 2, controlled, with times weekly. complication Active varenicline (CHANTIX) 1 Take 1 tablet 60 tablet 1 mg tabletIndications: by mouth 2 7 Tobacco use disorder times daily. Active pregabalin (LYRICA) 100 Take 1 60 capsule 4 mg capsuleIndications: capsule by 8 Chronic midline low back mouth 2 times pain with right-sided daily. sciatica Active atorvastatin (LIPITOR) 20 Take 1 tablet 90 tablet 1 mg tabletIndications: by mouth at 8 Dyslipidemia bedtime nightly. Active metoprolol succinate Take 1 tablet 90 tablet 1 (TOPROL XL) 100 mg by mouth 8 extended release daily. tabletIndications: Essential hypertension with goal blood pressure less than 130/80 Active lisinopril-hydrochlorothi Take 2 180 tablet 1 azide (PRINZIDE, tablets by 8 ZESTORETIC) 20-12.5 mg mouth daily. per tabletIndications: Essential hypertension with goal blood pressure less than 130/80 Active famotidine (PEPCID) 20 mg Take 1 tablet 180 tablet 1 tabletIndications: by mouth 2 8 Gastroesophageal reflux times daily. disease without esophagitis Active glimepiride (AMARYL) 4 mg Take 1 tablet 180 tablet 1 tabletIndications: DM by mouth 8 type 2, controlled, with every morning complication (before breakfast). Active traMADol (ULTRAM) 50 mg Take 1 tablet 90 tablet 1 tabletIndications: by mouth 8 Chronic midline low back every 8 hours pain with right-sided as needed for sciatica Pain. Active metFORMIN (GLUCOPHAGE) TAKE 2 120 tablet 1 500 mg tabletIndications: TABLETS BY 8 DM type 2, controlled, MOUTH 2 TIMES with complication A DAY EVERY MORNING AND EVERY EVENING WITH MEALS Active Problems Problem Noted Date Decreased sensation 06/15/2015 Edentulism, partial 02/06/2015 Diabetes mellitus type 2 without retinopathy 015 Lumbar pain 08/11/2014 Congenital spondylolisthesis 05/30/2014 Spinal stenosis, lumbar region, without neurogenic cl audication 05/30/2014 Thoracic or lumbosacral neuritis or radiculitis, unsp ecified 05/30/2014 Degeneration of lumbar or lumbosacral intervertebral disc 05/30/2014 Tubular adenoma of colon 05/19/2014 Overview: Needs repeat colonoscopy in Sep 2015 History of complete foot exam by quilt stuffer or other provider 08/13/2013 Osteoarthritis of lumbar spine 04/09/2013 Chronic knee pain 01/04/2013 Hyperlipidemia LDL goal < 100 01/04/2013 HTN, goal below 130/80 01/04/2013 Foot pain, right 07/27/2012 Diabetes mellitus type II, uncontrolled 07/07/2012 Family history of colon cancer 04/30/2012 Immunizations Name Administration Dates Next Due Influenza Vaccine 09/11/2016, 05/19/2014, Influenza Vaccine, 08/15/2017 (Deferred: Melody nt already had this Seasonal, Injectable immunization - states he re ceived in April ) Pneumoccoccal 04/16/2012 Tdap Tetanus, diphtheria, 04/16/2012 acellular pertussis Vaccine Family History Medical History Relation Name Comments Diabetes Brother Diabetes Brother Cancer Father colon cancer Diabetes Mother Hypertension Mother Relation Name Status Comments Brother Brother Father from colon cancer Mother Alive Social History Date Tobacco Use Types Packs/Day Years Used Never Smoker Smokeless Tobacco: Never Used Tobacco Cessation: Counseling Given: Yes Drinks/Week oz/Week Comments Alcohol Use No Food Insecurity Answer Date Recorded Within the past 12 months, you worried that your Never osman e 01/30/2017 food would run out before you got money to buy more. Within the past 12 months, the food you bought Never true 01/30/2017 just didn't last and you didn't have mo josé miguel to get more. Sex Assigned at Date Recorded Not on file Industry Job Start Date Occupation Not on file Not on file Not on file Travel End Travel History Travel Start No recent travel history available. Last Filed Vital Signs Not on file Plan of Treatment Health Maintenance Due Date Last Done Comments Colonoscopy 3yr 2015 10/13/2012 DM HGBA1C (Yearly) 10/31/2017 10/31/2016, 01/08/2016, 09/15/2014, Additional history exists DM Retinal Exam (Yearly) 10/31/2017 10/31/2016, 11/23/2015, 09/16/2014, Additional history exists DM Foot Exam (Yearly) 08/15/2018 08/15/2017, 12/07/2015, 04/15/2014, Additional history exists Implants Device Identifier Shelf Expiration Date Model / Serial / L ot Implanted Type Area Manufactur er 02/05/2016 / [id number] / Mtf Dbx Putty 5cc. Posterior: Back Implanted: Qty: 1 on 06/21/2014 by Ramesh Novoa, Resident () at [facility] Description:MTF DBX Putty [Demineralized Bone Matrix] / / N/A Medtronic Cd Horizon Solera 5.5/6.0 Posterior: Back Spine Instrumentation Implanted: Qty: 1 on 06/21/2014 by Dg Tello MD at [facility] Description:Medtronic Set Screws, x4, Item# [id number] Medtronic Screws, SIZE: 6.5mm.x 40mm. [x4], Item# [id number] Medtronic Reduction Screws, SIZE: 6.5mm.x 40mm. [x2], Item# [id number] Medtronic Reduction Set Screws, x2, Item# [id number] Medtronic Rods, SIZE: 5.5mm.x 60mm. [x2], Item# [id number] / / N/A Renae Abstl Spine Set Posterior: Back Implanted: Qty: 1 on 06/21/2014 by Dg Tello MD at [facility] Description:Webster Peek Cage, SIZE: 10mm.x 30mm.x 4 Degree, Item# [id number] Results Not on fileafter 03/23/2019 Insurance Type Payer Benefit Subscriber ID Effective Phone Address Plan / Dates Group AARP MEDICARE COMPLETE AARP xxxxxxxxx 2017- [address] MEDICARE Present [address] [place] [address] Advance Directives Date Inactivated Comments Code Status Date Activated 06/28/2014 3:33 PM Full Code 06/21/2014 4:11 PM
--- OUTSIDE RECORDS SUMMARY | 2020-03-26 16:04 | XMS REPORT | Clinical Summary ---
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 Posterior: Back Implanted: Qty: 1 on 06/21/2014 by Ramesh Novoa, Resident () at [facility] Description:MTF DBX Putty [Demineralized Bone Matrix] / / N/A Medtronic Cd Horizon Solera 5.5/6.0 Posterior: Back Spine Instrumentation Implanted: Qty: 1 on 06/21/2014 by Dg Tello MD at [facility] Description:Medtronic Set Screws, x4, Item# [id number] Medtronic Screws, SIZE: 6.5mm.x 40mm. [x4], Item# [id number] Medtronic Reduction Screws, SIZE: 6.5mm.x 40mm. [x2], Item# [id number] Medtronic Reduction Set Screws, x2, Item# [id number] Medtronic Rods, SIZE: 5.5mm.x 60mm. [x2], Item# [id number] / / N/A Renae Abstl Spine Set Posterior: Back Implanted: Qty: 1 on 06/21/2014 by Dg Tello MD at [facility] Description:Spring Peek Cage, SIZE: 10mm.x 30mm.x 4 Degree, Item# [id number] Results Not on fileafter 03/23/2019 Insurance Type Payer Benefit Subscriber ID Effective Phone Address Plan / Dates Group AARP MEDICARE COMPLETE AARP xxxxxxxxx 2017- [address] MEDICARE Present [id number] [place] [address] Advance Directives Date Inactivated Comments Code Status Date Activated 06/28/2014 3:33 PM Full Code 06/21/2014 4:11 PM
--- OUTSIDE RECORDS SUMMARY | 2020-03-26 16:04 | XMS REPORT | Continuity of Care Document ---
Author Author [facility] t Organization [facility] Address [address] [place] [address] Phone Unavailable Care Team Providers Care Media Reconciliation Specialist Name Role Phone Sandra SUE Attphys Unavailable Problems Condition Name Condition Details Condition Category Status Onset Date Resolution Date Last Treatment Date Treating Clinician Comments Source Decreased sensation Decreased sensation Disease Active 2015-06-15 00:00 :00 [facility] Edentulism, partial Edentulism, partial Disease Active 2015-02-06 00:00 :00 [facility] Diabetes mellitus type 2 without retinopathy Diabetes mellitus type 2 without retinopathy Disease Active 2014-09-16 00:00:00 [facility] Lumbar pain Lumbar pain Disease Active 2014-08-11 00:00:00 [facility] Congenital spondylolisthesis Congenital spondylolisthesis Disease Active 2014-05-30 00:00:00 [facility] Spinal stenosis, lumbar region, without neurogenic cla udication Spinal stenosis, lumbar region, without neurogenic claudication Disease Active 2014-05-30 00:00:00 [facility] Thoracic or lumbosacral neuritis or radiculitis, unspe cified Thoracic or lumbosacral neuritis or radiculitis, unspecified Disease Active 2014-05-30 00:00:00 [facility] Degeneration of lumbar or lumbosacral intervertebral d isc Degeneration of lumbar or lumbosacral intervertebral disc Disease Active 2014-05-30 00:00:00 [facility] Tubular adenoma of colon Tubular adenoma of colon Disease Acti ve 2014-05-19 00:00:00 Overview: Needs repeat colon oscopy in Sep 2015 [facility] History of complete foot exam by rn embedded or other p rovider History of complete foot exam by rn embedded or other provider Disease Active 2013-08-13 00:00:00 [facility] 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 Disea se Active 2013-04-09 00:00:00 [facility] Chronic knee pain Chronic knee pain Disease Active 2013-01-04 00:00:00 [facility] Hyperlipidemia LDL goal < 100 Hyperlipidemia LDL goal < 100 Disease Active 2013-01-04 00:00:00 [facility] HTN, goal below 130/80 HTN, goal below 130/80 Disease Active 2013-01-04 00:00:00 [facility] Foot pain, right Foot pain, right Disease Active 2012-07-27 00:00:00 [facility] Diabetes mellitus type II, uncontrolled Diabetes mellitus ty pe II, uncontrolled Disease Active 2012-07-07 00:00:00 [facility] Family history of colon cancer Family history of colon cancer Disea se Active 2012-04-30 00:00:00 [facility] Allergies, Adverse Reactions, Alerts This patient has no known allergies or adverse reactions. Family History Family Member Diagnosis Comments Start Date Stop Date Source Natural brother Diabetes [facility] alth Natural father Cancer [facility] Natural mother [facility] Natural mother Hypertension [facility] Social History Social Habit Start Date Stop Date Quantity Comments Source Sex Assigned At [facility] Alcohol intake 2018-12-02 00:00:00 2018-12-02 00:00:00 Current non-drinker of alcohol (finding) [facility] SDOH Food Worry 2017-01-30 00:00:00 2017-01-30 00:00:[facility] Food Scarcity 2017-01-30 00:00:00 2017-01-30 00:00:00 1 [facility] Smoking Status Start Date Stop Date Source Never smoker [facility] Medications Ordered Medication Name Filled Medication Name Start Date Stop Da te Current Medication? Ordering Clinician Indication Dosage Frequency Signature (SIG) Comments Components Source metFORMIN (GLUCOPHAGE) 500 mg tablet 2017-10-29 00:00:00 Yes DM type 2, controlled, with complication TAKE 2 TAB LETS BY MOUTH 2 TIMES A DAY EVERY MORNING AND EVERY EVENING WITH MEALS [facility] traMADol (ULTRAM) 50 mg tablet 2017-10-22 00:00:00 Yes Chronic midline low back pain with right-sided sciatica 50mg Take 1 tablet by mouth every 8 hours as needed for Pain. [facility] atorvastatin (LIPITOR) 20 mg tablet 2017-08-15 00:00:00 Yes Dyslipidemia 20mg Take 1 tablet by mouth at bedtime nightly. [facility] metoprolol succinate (TOPROL XL) 100 mg extended release tab let 2017-08-15 00:00:00 Yes Essential hypert ension with goal blood pressure less than 130/80 100mg QD Take 1 tablet by mouth daily. [facility] lisinopril-hydrochlorothiazide (PRINZIDE, ZESTORETIC) 20-12. 5 mg per tablet 2017-08-15 00:00:00 Yes Essential hy pertension with goal blood pressure less than 130/80 2{tbl} QD Take 2 tablets by mouth daily. [facility] famotidine (PEPCID) 20 mg tablet 2017-08-15 00:00:00 Yes Gastroesophageal reflux disease without esophagitis 20mg Q.5D Take 1 tablet by mouth 2 times daily. [facility] glimepiride (AMARYL) 4 mg tablet 2017-08-15 00:00:00 Yes DM type 2, controlled, with complication 4mg QD Take 1 tab let by mouth every morning (before breakfast). [facility] pregabalin (LYRICA) 100 mg capsule 2017-07-10 00:00:00 Yes Chronic midline low back pain with right-sided sciatica 100mg Q.5D Take 1 capsule by mouth 2 times daily. [facility] blood glucose test strips 2016-10-21 00:00:00 Yes DM type 2, controlled, with complication Check blood glucose 2 times weekly. [facility] varenicline (CHANTIX) 1 mg tablet 2016-10-21 00:00:00 Yes Tobacco use disorder 1mg Q.5D Take 1 tablet by mouth 2 times daily. [facility] polyethylene glycol (GOLYTELY) 236-22.74-6.74 -5.86 gram ora l solution 2016-01-19 00:00:00 Yes Colon polyps Add lukewarm drinking water to the fill genevieve (4 liters) and shake. Drink as directed by your doctor.. [facility] blood glucose meter 2016-01-19 00:00:00 Yes DM type 2, controlled, with complication Use as directed.. [facility] blood glucose (PRECISION XTRA TEST STRIPS) test strips 2014-01-26 00:00:00 Yes Diabetes mellitus type II, uncontrolled Check blood sugar 3 times a week. [facility] blood glucose meter (PRECISION XTRA) 2012-04-16 00:00:00 Yes Routine adult health maintenance Use as directed. [facility] Immunizations Ordered Immunization Name Filled Immunization Name Date Status Comments Source Influenza Vaccine 2016-09-11 00:00:00 Completed [facility] Influenza Vaccine 2014-05-19 00:00:00 Completed [facility] Pneumoccoccal 2012-04-16 00:00:00 [facility] Influenza Vaccine 2012-04-16 00:00:00 Completed [facility] Tdap Tetanus, diphtheria, acellular pertussis Vaccine 2012-04-16 00:00:00 Completed [facility] Procedures This patient has no known procedures. Plan of Care Planned Activity Planned Date Details Comments Source Future Scheduled Test 2018-08-15 00:00:00 DM Foot Exam (Year ly) [code = DM Foot Exam (Yearly)] [facility] Scheduled Test 2017-10-31 00:00:00 Hemoglobin A1c dudley surement (procedure) [code = 55207764] [facility] Scheduled Test 2017-10-31 00:00:00 DM Retinal Exam (Y early) [code = DM Retinal Exam (Yearly)] [facility] Scheduled Test 2015 00:00:00 Screening for mani gnant neoplasm of colon (procedure) [code = 223190091] [facility] Encounters Start Date/Time End Date/Time Encounter Type Admission Type Att[facility] Care Department Encounter ID Source 2017-11-19 00:00:00 2017-11-19 00:00:00 Outpatient [facility] [id number] [facility] 2017-11-12 00:00:00 2017-11-12 00:00:00 Outpatient [facility] [id number] [facility] 2017-10-22 00:00:00 2017-10-22 00:00:00 Outpatient [facility] [id number] [facility] 2017-10-06 00:00:00 2017-10-06 00:00:00 Outpatient [facility] [id number] [facility] 2017-10-03 00:00:00 2017-10-03 00:00:00 Outpatient [facility] [id number] [facility] 2017-09-18 00:00:00 2017-09-18 00:00:00 Outpatient [facility] [id number] [facility] 2017-08-15 08:49:49 2017-08-15 08:49:49 Outpatient [facility] [id number] [facility] 2017-07-10 00:00:00 2017-07-10 00:00:00 Outpatient [facility] [id number] [facility] 2017-06-12 10:47:28 2017-06-12 10:47:28 Outpatient [facility] [id number] [facility] 2017-06-09 00:00:00 2017-06-09 00:00:00 Outpatient [facility] [id number] [facility] 2017-05-09 00:00:00 2017-05-09 00:00:00 Outpatient [facility] [id number] [facility] 2017-03-31 00:00:00 2017-03-31 00:00:00 Outpatient [facility] [id number] [facility] 2017-03-21 00:00:00 2017-03-21 00:00:00 Outpatient [facility] [id number] [facility] 2017-02-06 00:00:00 2017-02-06 00:00:00 Outpatient [facility] [id number] [facility] 2017-01-30 09:49:12 2017-01-30 09:49:12 Outpatient [facility] [id number] [facility] 2017-01-30 00:00:00 2017-01-30 00:00:00 Outpatient [facility] [id number] [facility] Results Test Description Test Time Test Comments Results Result Comments Source CT ABDOMEN/PELVIS W 2020-03-23 19:13:00 [place] [address] Patient Name: TAO STILL MR #: [id number] : 1960 Age/Sex: 59/M Req #: [id number] Adm Physician: Ordered by: ARIES SUE Report #: [id number] Location: ER Room/Bed: Procedure: [id number] CT/CT ABDOMEN/PELVIS W Exam Date: 03/23/20 Exam [...] ARIES SUE CHEST SINGLE (PORTABLE) 2020-03-23 18:31:00 [place] [address] Patient Name: TAO STILL MR #: [id number] : 1960 Age/Sex: 59/M Req #: [id number] Adm Physician: Ordered by: ARIES SUE Report #: [id number] Location: ER Room/Bed: Procedure: [id number] DX/CHEST SINGLE (PORTABLE) Exam Date: 03/23/20 Exam [...] acute thoracic radiographic abnormality. Signed by: Anju Msos MD on 03/23/2020 6:32 PM Dictated By: ANJU MOSS MD 31 Transcribed By: YUNIOR on 03/23/201831 COPY TO: ARIES SUE
--- NOTE | 2020-03-26 17:10 | NUR ---
PATIENT HAD A SMALL BOWEL MOVEMENT
--- NOTE | 2020-03-26 18:14 | NUR ---
ng removed as per ordered pt tolerated well,
[2020-03-26] MEDS: HYDROMORPHONE 1MG/1ML INJ IV PRN (23:11)
[2020-03-27] VITALS (7 sets, daily range): BP systolic 145–162; BP diastolic 76–95
[2020-03-27] MEDS: SODIUM CHLORIDE 0.9% 1000ML 1,000 ML IV SCH ×2 (00:04→13:30)
[2020-03-27] MEDS: SODIUM CHLORIDE 0.9% 250ML IRRIG IR SCH (00:13)
[2020-03-27] MEDS: METRONIDAZOLE 500MG/NS 100ML 100 ML IV SCH ×2 (02:00→09:00)
[2020-03-27] MEDS: HYDROMORPHONE 1MG/1ML INJ IV PRN ×3 (05:15→22:03)
[2020-03-27 05:45] LABS: BASOPHILS # (AUTO) 0.1 (0.0-0.1); BASOPHILS % 0.7 % (0.0-1.0); EOSINOPHILS # (AUTO) 0.1 (0.0-0.4); EOSINOPHILS % 1.2 % (0.0-6.0); HEMATOCRIT 36.3 % (38.2-49.6); HEMOGLOBIN 12.4 g/dL (14.0-18.0); LYMPHOCYTES # (AUTO) 1.3 (1.0-3.2); LYMPHOCYTES % 18.3 % (18.0-39.1); MEAN CORPUSCULAR HEMOGLOBIN 30.4 pg (28-32); MEAN CORPUSCULAR HGB CONC 34.2 g/dL (31-35); MONOCYTES # (AUTO) 0.6 (0.2-0.8); MONOCYTES % 8.9 % (4.4-11.3); NEUTROPHILS # (AUTO) 5.1 (2.1-6.9); NEUTROPHILS % 70.5 % (38.7-80.0); PLATELET COUNT 201 x10e3/uL (140-360); RED BLOOD COUNT 4.08 x10e6/uL (4.3-5.7); RED CELL DISTRIBUTION WIDTH 13.5 % (11.7-14.4)
[2020-03-27] MEDS: PIPER-TAZ 3.375 GM 50 ML IV SCH ×4 (06:00→18:00)
[2020-03-27 06:20] LABS: BLOOD UREA NITROGEN 10 mg/dL (7-26); BUN/CREATININE RATIO 14 (6-25); CALCIUM 8.1 mg/dL (8.4-10.2); CARBON DIOXIDE 21 mmol/L (22-29); CHLORIDE 106 mmol/L (98-107); CREATININE, SERUM 0.73 mg/dL (0.72-1.25); EST GLOMERULAR FILTRATION RATE > 60 ML/MIN (60-); GLUCOSE 83 mg/dL (74-118); SODIUM 137 mmol/L (136-145)
[2020-03-27] MEDS: INSULIN REGULAR, HUMAN 100 UNIT/1 ML 3ML VIAL SQ SCH ×5 (07:30→21:00)
[2020-03-27] MEDS: BISACODYL 10 MG SUPP PR SCH ×2 (09:53→17:00)
[2020-03-27] MEDS: PANTOPRAZOLE 40 MG 10ML VIAL IV SCH (09:53)
[2020-03-27] MEDS ORDERED: POTASSIUM CHLORIDE 10MEQ EA PO ONE (11:15)
[2020-03-27] MEDS ORDERED: POTASSIUM CHLORIDE 20MEQ/100ML 100 ML IV ONE (11:15)
[2020-03-27] MEDS: HYDROCODONE/APAP 7.5MG-325MG 1 EA TAB PO PRN (18:20)
[2020-03-28] VITALS (8 sets, daily range): BP systolic 131–162; BP diastolic 80–94
[2020-03-28 05:29] LABS: BASOPHILS # (AUTO) 0.1 (0.0-0.1); BASOPHILS % 0.7 % (0.0-1.0); EOSINOPHILS # (AUTO) 0.3 (0.0-0.4); EOSINOPHILS % 3.9 % (0.0-6.0); HEMATOCRIT 35.5 % (38.2-49.6); HEMOGLOBIN 12.1 g/dL (14.0-18.0); LYMPHOCYTES # (AUTO) 1.4 (1.0-3.2); LYMPHOCYTES % 19.3 % (18.0-39.1); MEAN CORPUSCULAR HEMOGLOBIN 29.7 pg (28-32); MEAN CORPUSCULAR HGB CONC 34.1 g/dL (31-35); MEAN CORPUSCULAR VOLUME 87.2 fL (81-99); MONOCYTES # (AUTO) 0.7 (0.2-0.8); MONOCYTES % 9.3 % (4.4-11.3); NEUTROPHILS # (AUTO) 4.6 (2.1-6.9); NEUTROPHILS % 66.4 % (38.7-80.0); PLATELET COUNT 223 x10e3/uL (140-360); RED BLOOD COUNT 4.07 x10e6/uL (4.3-5.7); RED CELL DISTRIBUTION WIDTH 13.2 % (11.7-14.4)
[2020-03-28 05:53] LABS: ANION GAP 13.4 mmol/L (8-16); BLOOD UREA NITROGEN 9 mg/dL (7-26); BUN/CREATININE RATIO 12 (6-25); CALCIUM 8.5 mg/dL (8.4-10.2); CARBON DIOXIDE 23 mmol/L (22-29); CHLORIDE 107 mmol/L (98-107); CREATININE, SERUM 0.73 mg/dL (0.72-1.25); EST GLOMERULAR FILTRATION RATE > 60 ML/MIN (60-); GLUCOSE 100 mg/dL (74-118); POTASSIUM 3.4 mmol/L (3.5-5.1); SODIUM 140 mmol/L (136-145)
[2020-03-28] MEDS: PIPER-TAZ 3.375 GM 50 ML IV SCH ×5 (05:54→23:17)
--- NOTE | 2020-03-28 07:05 | NUR ---
SBAR BEDSIDE REPORT RECEIVED FROM PM SHIFT. PATIENT FOUND RESTING IN BED IN NO ACUTE DISTRESS. PATIENT AAOX4 AND ABLE TO MAKE NEEDS KNOWN. PATIENT WAS EDUCATED ON FALL RISK PRECAUTIONS AND VERBALIZED UNDERSTANDING. CALL LIGHT AND BELONGINGS PLACED NEARBY. I WILL CONTINUE TO MONITOR.
[2020-03-28] MEDS: INSULIN REGULAR, HUMAN 100 UNIT/1 ML 3ML VIAL SQ SCH ×4 (07:30→20:48)
[2020-03-28] MEDS: HYDROCODONE/APAP 7.5MG-325MG 1 EA TAB PO PRN ×4 (08:00→23:11)
[2020-03-28] MEDS: SODIUM CHLORIDE 0.9% 1000ML 1,000 ML IV SCH (08:08)
[2020-03-28] MEDS: PANTOPRAZOLE 40 MG 10ML VIAL IV SCH (08:09)
--- NOTE | 2020-03-28 12:16 | NUR ---
PT HAD 2 BM'S TODAY AND TOLERATED FULL LIQUID DIET WELL. PATIENT AMBULATED IN THE HALLWAY X1
[2020-03-29] VITALS: BP 151/77
[2020-03-29] MEDS: SODIUM CHLORIDE 0.9% 1000ML 1,000 ML IV SCH (00:53)
[2020-03-29 04:00] VITALS: BP 144/83
[2020-03-29] MEDS: HYDROCODONE/APAP 7.5MG-325MG 1 EA TAB PO PRN ×2 (04:38→09:28)
[2020-03-29] MEDS: PIPER-TAZ 3.375 GM 50 ML IV SCH (05:24)
--- NOTE | 2020-03-29 07:29 | NUR ---
REPORT GIVEN TO DAYSHIFT NURSE. ALERT AND ORIENTED. NO SIGNS IV INFILTRATION. BED LOCKED AND IN LOW POSITION. CALL LIGHT WITHIN REACH.
[2020-03-29] MEDS: INSULIN REGULAR, HUMAN 100 UNIT/1 ML 3ML VIAL SQ SCH ×2 (07:30→11:30)
--- NOTE | 2020-03-29 07:31 | NUR ---
SBAR BEDSIDE REPORT RECEIVED FROM PM SHIFT NURSE. PATIENT FOUND LYING IN BED IN NO ACUTE DISTRESS. PATIENT AAOX4 AND ABLE TO MAKE NEEDS KNOWN. PATIENT REQUESTED SUGAR SUBSTITUTE WHICH WAS PROVIDED. PATIENT WAS EDUCATED ON FALL RISK PRECAUTIONS AND VERBALIZED UNDERSTANDING. CALL LIGHT AND BELONGINGS PLACED NEARBY. WILL CONTINUE TO MONITOR.
[2020-03-29 08:00] VITALS: BP 158/88
[2020-03-29 08:49] VITALS: BP 158/88
[2020-03-29] MEDS: PANTOPRAZOLE 40 MG 10ML VIAL IV SCH (09:00)
--- NOTE | 2020-03-29 11:10 | NUR ---
IMM EXPLAINED TO PT, SIGNED BY PT AND PLACED ON CHART COPY OF IMM TO PT IN CARE TRANSITIONS FOLDER
--- NOTE | 2020-03-29 12:16 | NUR ---
PATIENT DISCHARGED HOME VIA PRIVATE VEHICLE. PERIPHERAL IV DISCONTINUED; CATHETER TIP INTACT WITHOUT RESISTANCE. DRY DRESSING APPLIED. TELEMETRY BOX DISCONTINUED, CLEANED, AND RETURNED TO THE MONITOR ROOM. PATIENT RECEIVED DISCHARGE SUMMARY, WRITTEN PRESCRIPTION, AND EDUCATION SHEETS USING THE TEACH BACK METHOD. PATIENT VERBALIZED UNDERSTANDING.
== END 2020-03-29 12:16 | disposition home or self-care (01) | DRG 329 ==
LOC: ER 16:55 → ERHOLD 17:05 → MED/SURG 03-24 00:13
PROC: 0DBA0ZZ Excision of Jejunum, Open Approach (ICD-10-PCS; principal; 2020-03-24 06:30)
DX: K57.00 Diverticulitis of small intestine with perforation and abscess without bleeding (principal); K65.1 Peritoneal abscess; I10 Essential (primary) hypertension; E11.9 Type 2 diabetes mellitus without complications; E78.5 Hyperlipidemia, unspecified; M54.9 Dorsalgia, unspecified; F17.210 Nicotine dependence, cigarettes, uncomplicated; R10.0 Acute abdomen; Z11.59 Encounter for screening for other viral diseases
CPT/HCPCS: 36415; 71045; 74177; 80048; 80053; 81001; 82550; 82553; 82948; 83605; 83690; 84484; 85025; 87040; 88307; 93005; 96361; 99284; J0330; J1100; J1170; J2001; J2250; J2270; J2405; J2543; J2710; J3010; J3480; J7030; J7070; Q9967